=== PATIENT | male | born 1990 | race African-American/Black ===

== ENCOUNTER 2016-12-11 12:10 | Emergency (ER) | payer OTHER ==
[~2016-12-11] VITALS: Ht 182.9 cm; Wt 104.3 kg
--- NOTE | 2016-12-11 12:31 | NUR ---
ARRIVAL PATIENT ARRIVED TO [facility] AMBULATORY, C/O OF HEADACHE FOR THE PAST 2 DAYS, PATIENT STATES HE DOES HAVE A HISTORY OF MIGRAINES DOESNT TAKE ANYTHING FOR THEM JUST "SLEEPS THEM OFF." TOOK NON ASA TODAY WITHOUT RELIEF, CAME TO ED FOR FURTHER EVAL BY EDP.
[2016-12-11] MEDS ORDERED: COMPAZINE IV STA (12:59)
[2016-12-11] MEDS ORDERED: MORPHINE SULFATE IV STA (12:59)
--- NOTE | 2016-12-11 13:04 | ER.PDOC ---
General Chief Complaint: Headache Stated Complaint: MIGRAINE Time seen by MD: 12:50 Source: patient History of Present Illness Initial Comments Pt has a Hx of migraines. This occurs once in man months, and always resolves after getting some sleep. Current episode started yesterday, and had been failing to resolve till this AM. It was has been waxing and waning, and causing him same nausea and vomiting since this morning, while at work. So, he decided to come ion for eval & Rx. Timing/Duration: 24 hours Severity/Quality: severe, throbbing Prior Headaches/Recent Trauma: no recent headache/trauma, frequent headaches Associated Symptoms: nausea/vomiting, typical of prior aura Modifying Factors: improves with exposure to light Prior symptoms/Treatment: Similar symptoms previous Allergies: Coded Allergies: No Known Allergies (Unverified , 12/11/16) Home Meds No Active Prescriptions or Reported Meds Vital Signs First Vital Signs Date Time Temp Pulse Resp B/P (MAP) Pulse Ox O2 Delivery O2 Flow Rate FiO2 12/11/16 12:27 97.6 52 18 98 12/11/16 12:29 152/78 (102) Last Vital Signs Date Time Temp Pulse Resp B/P (MAP) Pulse Ox O2 Delivery O2 Flow Rate FiO2 12/11/16 14:46 56 18 98 12/11/16 14:39 97.6 171/89 (116) Past Medical History Medical History: no pertinent history Surgical History: no surgical history Family History Significant Family History: no pertinent family hx Social History Smoking: non-smoker Alcohol Use: none Drug Use: none Review of Systems Constitutional: no symptoms reported, see HPI Eyes: see HPI Ears, Nose, Mouth, Throat: no symptoms reported Respiratory: no symptoms reported Cardiovascular: no symptoms reported Gastrointestinal: see HPI Genitourinary: no symptoms reported All Other Systems: Reviewed and Negative Physical Exam General Appearance: No Apparent Distress, WD/WN Head/Eyes: eyes nml inspection, no facial swelling, no nystagmus, PERRL ENT: nml ENT inspection, pharynx nml Neck: nml inspection, Supple Cardiovascular: Normal Peripheral Pulses, Regular Rate, Rhythm, No Edema, No Gallop, No JVD, No Murmur Respiratory: chest non-tender, lungs clear, normal breath sounds, no respiratory distress, no accessory muscle use Gastrointestinal: Normal Bowel Sounds, No Organomegaly, No Pulsatile Mass, Non Tender, Soft Psychiatric: Alert, Oriented x 3 Cranial Nerves: Normal Hearing, Normal Speech, PERRL Coordination/Gait: Normal Finger to Nose, Normal Gait Motor/Sensory: No Motor Deficit, No Sensory Deficit Results/Orders Results/Orders Administered Medications Medications (Trade) Dose Ordered Sig/[place] Route PRN Reason Start Time Stop Time Status Last Admin Dose Admin Prochlorperazine Edisylate (Compazine) 10 mg STAT STAT IV 12/11/16 12:59 12/11/16 14:47 DC 12/11/16 13:13 Morphine Sulfate (Morphine Sulfate) 2 mg STAT STAT IV 12/11/16 12:59 12/11/16 14:47 DC 12/11/16 13:13 Progress Progress Pt got the above medications and which led to a remarkable relief of symptoms. He therefore requested for DC. Departure Time of Disposition: 14:25 Disposition: 01 HOME, SELF-CARE Impression: Primary Impression: Headache Additional Impression: Migraine Condition: Stable Patient Instructions: Migraine Headache Referrals: PCP,UNKNOWN (PCP) PRIMARY CARE PROVIDER Additional Instructions: Script for Imitrex given; take prn. Return to ER if worsening symptoms or if any complications set in, and/or it is an emergency. Otherwise, follow with PCP as needed Scripts No Active Prescriptions or Reported Meds HOMAR CARRILLO MD Dec 11, 2016 13:04
[2016-12-11] MEDS ORDERED: COMPAZINE ONE (13:06)
[2016-12-11] MEDS ORDERED: MORPHINE SULFATE ONE (13:07)
[2016-12-11 14:46] VITALS: BP 171/89
== END 2016-12-11 14:45 | disposition home or self-care (01) ==
LOC: ER 12:10
DX: G43.909 Migraine, unspecified, not intractable, without status migrainosus (principal); R11.2 Nausea with vomiting, unspecified
CPT/HCPCS: 96374; 96375; 99284; J0780; J2270